=== PATIENT | male | born 1995 | race Caucasian/White ===

== ENCOUNTER 2016-12-16 18:23 | Emergency (ER) | payer OTHER ==
[~2016-12-16] VITALS: Ht 193 cm; Wt 83.9 kg
[~2016-12-16 18:23] MED LIST: BACTRIM DS 8001 TA1 PO; Motrin,Rufen800 MG PO; NAPROSYN500 MG PO; NORCO 325 MG-51 TAB PO
[2016-12-16] MEDS ORDERED: PREDNISONE10 MG PO (18:39)
== END 2016-12-16 18:51 | disposition home or self-care (01) ==
LOC: ED 18:23
DX: L30.9 Dermatitis, unspecified (principal); R03.0 Elevated blood-pressure reading, without diagnosis of hypertension; F17.200 Nicotine dependence, unspecified, uncomplicated

== ENCOUNTER 2018-04-18 10:33 | Emergency (ER) | payer OTHER ==
[~2018-04-18] VITALS: Ht 193 cm; Wt 83.9 kg
[~2018-04-18 10:33] MED LIST changes: +PREDNISONE10 MG PO
== END 2018-04-18 12:15 | disposition left against medical advice (07) ==
LOC: ED 10:33
DX: S20.211A Contusion of right front wall of thorax, initial encounter (principal); F17.200 Nicotine dependence, unspecified, uncomplicated; W01.198A Fall on same level from slipping, tripping and stumbling with subsequent striking against other object, initial encounter; Y93.01 Activity, walking, marching and hiking; Y92.096 Garden or yard of other non-institutional residence as the place of occurrence of the external cause; Y99.8 Other external cause status

== ENCOUNTER 2018-07-03 14:33 | Emergency (ER) | payer OTHER ==
[~2018-07-03] VITALS: Ht 193 cm; Wt 81.6 kg
[2018-07-03] MEDS ORDERED: Motrin,Rufen800 MG PO (14:46)
== END 2018-07-03 15:02 | disposition home or self-care (01) ==
LOC: ED 14:33
DX: M54.6 Pain in thoracic spine (principal); G89.29 Other chronic pain; F17.200 Nicotine dependence, unspecified, uncomplicated

== ENCOUNTER 2019-06-30 02:00 | Emergency (ER) | payer SELFPAY ==
[~2019-06-30] VITALS: Ht 193 cm; Wt 83.9 kg
== END 2019-06-30 03:13 | disposition home or self-care (01) ==
LOC: ED 02:00
DX: R07.81 Pleurodynia (principal); Z79.899 Other long term (current) drug therapy; W01.198A Fall on same level from slipping, tripping and stumbling with subsequent striking against other object, initial encounter; Y93.89 Activity, other specified; Y92.89 Other specified places as the place of occurrence of the external cause; Y99.8 Other external cause status

== ENCOUNTER 2025-02-07 22:21 | Emergency (ER) | payer OTHER ==
[~2025-02-07] VITALS: Ht 193 cm; Wt 93.0 kg
[2025-02-07] MEDS ORDERED: SODIUM CHLORIDE 0.9% 1,000 ML IV ONE (22:55)
[2025-02-07] MEDS ORDERED: methylPREDNISolone sod succ 125 MG VIAL IV ONE (22:55)
[2025-02-07] MEDS ORDERED: Metoclopramide Hydrochloride 10 MG/2 ML VIAL IV ONE (22:55)
[2025-02-07] MEDS ORDERED: diphenhydrAMINE hydrochloride 50 MG/ML VIAL IV ONE (22:55)
[2025-02-07] MEDS ORDERED: Water, Sterile 10 ML VIAL ONE (23:24)
== END 2025-02-08 00:38 | disposition home or self-care (01) ==
LOC: ED 22:21
DX: G43.909 Migraine, unspecified, not intractable, without status migrainosus (principal); R11.0 Nausea

== ENCOUNTER → 2025-02-10 | Emergency (ER) | payer OTHER ==
[~2025-02-10] VITALS: Ht 193 cm; Wt 93.0 kg
[~2025-02-10] MED LIST changes: +HYDROmorphONE Hydrochloride 0.5 MG/0.5 ML SYRINGE IV ONE; +Ketorolac Tromethamine 30 MG/ML VIAL IV ONE; +Ondansetron Hydrochloride 4 MG/2 ML VIAL IV ONE; +SODIUM CHLORIDE 0.9% 1,000 ML IV ONE; +diphenhydrAMINE hydrochloride 50 MG/ML VIAL IV ONE
== END ==
LOC: ED 00:56
DX: R51.9 Headache, unspecified (principal); Z79.899 Other long term (current) drug therapy